=== PATIENT | female | born 1945 | race African-American/Black ===

== ENCOUNTER 2017-03-28 13:27 | Inpatient (IN) ==
[2017-03-28 14:39] LABS: Basophils % 0.2 % (0.0-0.8); Eosinophils # 0.1 10*3/uL (0.0-0.87); Eosinophils % 1.1 % (0.00-10.9); Hematocrit 32.8 VOL% (35.7-47.0); Hemoglobin 10.7 GM/DL (12.0-16.0); Immature Granulocytes % 0.3 %; Immature Granulocytes Absolute 0.03 #; Lymphocytes # 3.1 10*3/uL (1.4-4.0); Lymphocytes % 28.9 % (21.3-54.2); Mean Corpuscular HGB Conc 32.6 GM/DL (32-36); Mean Corpuscular Hemoglobin 26 PG (27-34); Mean Corpuscular Volume 79.8 FL (87-102); Mean Platelet Volume 11.2 FL (9.6-12.0); Monocytes # 0.8 10*3/uL (0.11-0.8); Monocytes % 7.2 % (1.7-12.7); Neutrophils # 6.6 10*3/uL (1.4-7.4); Neutrophils % 62.3 % (38.7-73.9); Platelet Count 330 T/CUMM (130-400); Red Blood Count 4.11 MC/CUMM (3.8-5.5); Red Cell Distribution Width 15.8 % (9.3-17.3); White Blood Count 10.7 T/CUMM (4-12)
[2017-03-28 15:09] LABS: Blood Urea Nitrogen 61 MG/DL (7-18); Calcium 9.5 MG/DL (8.5-10.1); Glucose 103 MG/DL (74-106); Magnesium 2.1 MG/DL (1.8-2.4); Osmolality,Calculated 291.7 MOS/KG (273-304); Potassium 2.6 MMOL/L (3.5-5.1); Sodium 138 MMOL/L (136-145); Troponin I Only < 0.015 NG/ML (0.00-0.045)
[2017-03-28] MEDS ORDERED: POTASSIUM CHLORIDE 20 MEQ TABLET PO STA (15:28)
[2017-03-28] MEDS ORDERED: SODIUM CHLORIDE 0.9% 500 ML IV STA (15:28)
[2017-03-28] MEDS ORDERED: POTASSIUM CHLORIDE 20 MEQ TABLET PO ONE (15:39)
--- NOTE | 2017-03-28 15:51 | Emergency Department Note ---
Clem Tripp Gwan, am scribing for, and in the presence of, Hebert Peterson M.D. 14:12. Kristen Tripp Howard T, M.D., personally performed the services described in this documentation, ascribed by Maged [place] in my presence, and it is both accurate and complete [id number] . Arrival - Arrival Chief Complaint: Arrhythmia/Palpitations Stated Complaint: increase heart rate ED Nursing Triage Note: Pt was out shopping today when she started to feel her heart race. States she has trouble keeping her K+ level normal. Pt denies SOB. Mode of Arrival: Ambulatory Limitations: No Limitations Source: Patient, Old Records Reviewed Time Seen by Provider: 03/28/17 13:55 - History of Present Illness HPI Narrative: Pt is a 72 y/o female who presents to the ED for further evaluation of heart palpitations with an onset today. Patient stated that she was out shopping when she began to feel her heart racing. She confirmed that she has been followed by her PCP Dr. Pascal due to her unstable potassium levels. Patient said that she was shopping in [facility] when she began to feel her heart racing. This prompted her visit to the ED for further evaluation. She confirmed that she is Stage III kidney failure due to the medication for her potassium levels, that this episode happened before 3 weeks ago, that her next appointment with PCP is in 3 months and that she has an appointment with Nephrology 04/09/2017 in [place]. Patient denies any SOB, fever, cough or any N/V/D. While in ED, patient stated that she is not in any pain. No other problems/complaints reported in ED. Onset (ago): hour(s) Consistency: constant Severity: moderate Allergies/Adverse Reactions: Allergies Allergy/AdvReac Type Severity Reaction Status Date / Time No Known Allergies Allergy Unverified 03/15/17 10:02 Home Medications: Home Medications Medication Instructions Recorded Confirmed Type Acetaminophen 650 mg PO Q6H PRN 03/15/17 03/28/17 History Allopurinol 300 mg PO DAILY 03/15/17 03/28/17 History Furosemide Tab [Lasix Tab] 80 mg PO BID 03/15/17 03/28/17 History HYDROcodone/ACETAMIN 7.5-325 1 tablet PO Q6H PRN #20 tablet 03/15/17 03/28/17 Rx [[place] 7.5-325] Lidocaine [Lidocaine 5% Oint] 1 applic TOP DAILY PRN 03/15/17 03/28/17 History Potassium Chloride 40 meq PO TID 03/15/17 03/28/17 History metOLazone [Metolazone] 5 mg PO DAILY 03/15/17 03/28/17 History Meloxicam [Meloxicam] 7.5 mg PO BID W/MEALS 03/28/17 03/28/17 History Review of System - Review of System 12 point system: reviewed and no additional remarkable complaints except as stated - Review of System Constitutional: Absent: chills, fever Eyes: Absent: discharge, pain Head/Ears/Nose/Throat: Absent: earache Cardiovascular: Present: as per HPI, palpitations Gastrointestinal: Absent: abdominal pain, nausea, vomiting, diarrhea Musculoskeletal: Absent: arm pain, back pain, leg pain, neck pain Skin: Absent: rash, lesions Neurological: Absent: headache Medical,Surgical,& Family Hx - Medical History Respiratory: History of: Asthma Renal: History of: Renal Failure Musculoskeletal: History of: Musculoskeletal Problems (arthritis) Other: History of: Miscellaneous Medical Problems (lower ext swelling) - Social History Smoking Status: Never smoker Exam Vital Signs: Vital Signs Temperature 96.9 F L 03/28/17 13:35 Pulse Rate 78 03/28/17 15:00 Respiratory Rate 16 03/28/17 15:00 Blood Pressure 114/86 03/28/17 15:00 O2 Sat by Pulse Oximetry 98 03/28/17 15:00 - General General appearance: alert, in no apparent distress - Head Head exam: Present: atraumatic, normocephalic - Eye Eye exam: Present: normal appearance, PERRL, EOMI - ENT ENT exam: Present: normal oropharynx, mucous membranes moist, TM's normal bilaterally, normal external ear exam - Neck Neck exam: Present: full ROM, trachea midline. Absent: tenderness - Respiratory Respiratory exam: Present: normal lung sounds bilaterally. Absent: respiratory distress - Cardiovascular Cardiovascular exam: Present: regular rate, normal rhythm, normal heart sounds - Extremities Exam Extremities exam: Present: full ROM. Absent: normal inspection, tenderness, calf tenderness - Back Exam Back exam: Present: full ROM. Absent: tenderness - Neurological Exam Neurological exam: Present: alert, oriented X3, CN II-XII intact. Absent: motor sensory deficit - Psychiatric Psychiatric exam: Present: normal affect, normal mood - Skin Skin exam: Present: warm, dry, intact, normal color Course Course Narrative: Medical decision making: Patient appears stable no acute distress however the potassium is low and she did have symptoms earlier today therefore hospitalist will evaluate the patient for probable overnight observation and further treatment. Results - Labs CBC & BMP: 03/28/17 14:21 03/28/17 14:21 Lab Results: I have reviewed the patients labs Labs: Laboratory Tests 03/28/17 14:21 WBC 10.7 RBC 4.11 Hgb 10.7 L MCV 79.8 L MCH 26 L Plt Count 330 Laboratory Tests 03/28/17 14:21 Sodium 138 Potassium 2.6 L Chloride 99 Carbon Dioxide 28 Anion Gap 13.6 BUN 61 H Creatinine 1.70 H BUN/Creatinine Ratio 35.00 H Troponin I < 0.015 - EKG EKG results: interpreted by ERMD (hr 84), sinus rhythm, normal axis, normal QRS , normal ST/T, no acute changes (1st degree av block) Disposition Clinical Impression: Palpitations, Hypokalemia Case discussed with: patient Disposition: Disch/Xfer-[facility] Term Hos Condition: Stable Time of Disposition: 15:51
--- NOTE | 2017-03-28 16:05 | Hospitalist History & Physical ---
Assessment and Plan (1) Chronic kidney disease, stage III (moderate) Status: Acute Current Visit: Yes (2) Chronic hypokalemia Status: Acute Current Visit: Yes (3) Palpitations Status: Acute Current Visit: Yes (4) Hypokalemia Status: Acute Assessment and plan: Patient will be admitted to a monitored bed. We will replete her potassium and continue her home dose which is 40 mEq p.o. 3 times daily. Her potassium is low most likely secondary to her heavy doses of Lasix. We will continue her other home meds as appropriate. Patient should be able to be discharged in the morning. Will check cardiac enzymes every 6 hours 2. Current Visit: Yes History of Present Illness Chief complaint: Palpitations History of present illness: Ms. Trae Morocho is a 72 year old female with past medical history significant for arthritis low potassium chronic kidney disease stage III he was in her normal state of health until today. Patient was at [employer] and felt her heart racing. She has been told in the past that if her potassium gets too low or gets too high he could be fatal for her. She got really concerned she lives by herself and came up to our hospital for further evaluation. Patient was found to have a potassium of 2.6. I was consulted to admit her through the ER by Dr. Rodriguez Home Medications Medication Instructions Recorded Confirmed Type Acetaminophen 650 mg PO Q6H PRN 03/15/17 03/28/17 History Allopurinol 300 mg PO DAILY 03/15/17 03/28/17 History Furosemide Tab [Lasix Tab] 80 mg PO BID 03/15/17 03/28/17 History HYDROcodone/ACETAMIN 7.5-325 1 tablet PO Q6H PRN #20 tablet 03/15/17 03/28/17 Rx [[place] 7.5-325] Lidocaine [Lidocaine 5% Oint] 1 applic TOP DAILY PRN 03/15/17 03/28/17 History Potassium Chloride 40 meq PO TID 03/15/17 03/28/17 History metOLazone [Metolazone] 5 mg PO DAILY 03/15/17 03/28/17 History Meloxicam [Meloxicam] 7.5 mg PO BID W/MEALS 03/28/17 03/28/17 History Allergies Allergy/AdvReac Type Severity Reaction Status Date / Time No Known Allergies Allergy Unverified 03/15/17 10:02 Medical,Surgical,& Family Hx - Medical History Respiratory: History of: Asthma Renal: History of: Renal Failure Musculoskeletal: History of: Musculoskeletal Problems (arthritis) Other: History of: Miscellaneous Medical Problems (lower ext swelling) - Surgical History Abdominal Surgeries: Surgical HX of: Abdominal Surgery Orthopedic Surgeries: Surgical HX of;: Orthopedic Surgery - Family History Additional Family History: Congestive heart failure and Alzheimer's - Social History Smoking Status: Never smoker 12 point system: reviewed and no additional remarkable complaints except as stated Exam - Constitutional Vitals: Period Temp Pulse Resp BP Sys/[place] Pulse Ox Last 24 Hr 96.9 F 72-93 16-18 112-139/71-92 96-100 General appearance: normal weight - Head Head exam: Present: normal inspection - Eye Eye exam: Present: EOMI Pupils: Present: BRITANY - ENT ENT exam: Present: normal exam - Neck Neck exam: Present: normal inspection - Respiratory Respiratory exam: Present: clear to auscultation bilaterally - Cardiovascular Cardiovascular exam: Present: systolic murmur - GI/Abdominal GI/Abdominal exam: Present: normal bowel sounds - Extremities Exam Extremities exam: Present: edema - Back Exam Back exam: Present: normal inspection - Neurological Exam Neurological exam: Present: alert, oriented X3 - Psychiatric Psychiatric exam: Present: normal affect, normal mood - Skin Skin exam: Present: normal color Results - Labs CBC & BMP: 03/28/17 14:21 03/28/17 14:21
[2017-03-28] MEDS ORDERED: ACETAMINOPHEN 325 MG TABLET PO PRN (16:06)
[2017-03-28] MEDS ORDERED: LIDOCAINE 5% OINTMENT TOP PRN (16:08)
[2017-03-28] MEDS: ENOXAPARIN 40 MG/0.4 ML SYRINGE SUBCUT SCH (18:44)
[2017-03-28] MEDS: MELOXICAM 7.5 MG TABLET PO SCH (18:44)
[2017-03-28] MEDS: POTASSIUM CHLORIDE 20 MEQ TABLET PO SCH (21:06)
[2017-03-28] MEDS: FUROSEMIDE 80 MG TABLET PO SCH (21:06)
[2017-03-29] MEDS ORDERED: POTASSIUM CHLORIDE 20 MEQ TABLET PO ONE ×2 (01:00→05:00)
[2017-03-29 07:11] LABS: Calcium 8.8 MG/DL (8.5-10.1); Osmolality,Calculated 297.1 MOS/KG (273-304); Potassium 3.3 MMOL/L (3.5-5.1)
[2017-03-29] MEDS ORDERED: metOLazone 5 MG TABLET PO SCH (09:00)
[2017-03-29] MEDS: MELOXICAM 7.5 MG TABLET PO SCH (09:09)
--- NOTE | 2017-03-29 09:12 | EKG Report ---
Stationary ECG Study [facility] ER Test Date: 03/28/2017 1:37:02 PM Pat Name: SHABNAM CORONADO Department: Room: 292 Gender: F Refrigerating Engineer Head: Brenda Light : 1945 Requested by: Hebert Pereira Order Number: [id number] Reading MD: PIPPA MOODY Intervals [place] Rate: 84 P: 77 ND: 215 QRS: 51 QRSD: 85 T: 68 QT: 383 QTc: 424 Interpretive Statements SINUS RHYTHM WITH FIRST DEGREE AV BLOCK Electronically Signed On 03-30-17 21:32:04 CDT by PIPPA MOODY [email or web address]
[2017-03-29] MEDS: POTASSIUM CHLORIDE 20 MEQ TABLET PO SCH (09:16)
[2017-03-29] MEDS: ALLOPURINOL 300 MG TABLET PO SCH (09:17)
[2017-03-29] MEDS: PANTOPRAZOLE 40 MG TABLET PO SCH (09:17)
[2017-03-29] MEDS: FUROSEMIDE 80 MG TABLET PO SCH (09:18)
[2017-03-29] MEDS ORDERED: POTASSIUM CHLORIDE INJ 40 MEQ in SODIUM CHLORIDE 0.9% 1,000 ML IV SCH (14:30)
[2017-03-29] MEDS: SODIUM CHLOR 0.9% KCL 40 MEQ 40 MEQ/1,000 ML BAG IV SCH ×3 (14:50→23:20)
[2017-03-29] MEDS: ENOXAPARIN 40 MG/0.4 ML SYRINGE SUBCUT SCH (16:48)
--- NOTE | 2017-03-29 16:50 | Hospitalist Progress Note ---
Assessment and Plan (1) Acute renal failure Status: Acute Assessment and plan: Start IV hydration gentle, check echocardiogram. Patient denies a history of congestive heart failure. Current Visit: Yes (2) Hypotension Status: Acute Assessment and plan: Hold all diuretics, gentle hydration with normal saline Current Visit: Yes (3) Dehydration Status: Acute Assessment and plan: Gentle hydration with normal saline Current Visit: Yes (4) Palpitations Status: Acute Assessment and plan: Most likely due to hypotension and dehydration. Current Visit: Yes (5) Hypokalemia Status: Acute Assessment and plan: Replace and recheck in a.m. Current Visit: Yes Hospitalist: Subjective Interval history: Patient reports still feeling extremely weak. Her blood pressure is on the lower and in her potassium is still not returned to normal. We will start her back on normal saline and hold her Lasix and add some supplemental potassium. Exam - Constitutional Exam: Heart Rate-[RRR] Lungs-[CTAB] GI-[+bs soft, NT] Ext-[no edema] Neuro [Motor 5/5], [alert and oriented times 3] psych [normal mood and affect] General [no acute distress] Results - Labs CBC & BMP: 03/28/17 14:21 03/29/17 06:29 Lab Results: I have reviewed the past 24 hour labs Quality Measures - Stroke Symptom Onset Unknown: No
--- NOTE | 2017-03-29 18:34 | ECHO Report ---
Melanie Lizarraga Exam Date: 03/29/2017 16:25 Referring Physician: Technologist: Siria Nugent RDCS Age: 72 Ht (in): 63 Wt (lb): 199 Gender: F Exam Location: [facility] Echo Indications: Chronic kidney disease, stage 3 (moderate), Chronic hypokalemia, Palpitations BP: 98 / 68 HR: 70 Rhythm: Sinus Technical Quality: Fair IMPRESSIONS 1. Left ventricle is normal size systolic function with ejection fraction 50%. There is mild diastolic dysfunction. 2. Right ventricle is normal size systolic function. 3. Right and left atrium are mildly dilated. 4. Mild mitral valve regurgitation. 5. Minimally sclerotic aortic valve without Doppler abnormalities. 6. Mild tricuspid regurgitation. 7. At worse mildly elevated right-sided pressures. MEASUREMENTS (Male / Female) Normal Values 2D ECHO LV Diastolic Diameter PLAX 3.7 cm 4.2 - 5.9 / 3.9 - 5.3 cm LV Systolic Diameter PLAX 2.4 cm LV Fractional Shortening PLAX 34.2 % IVS Diastolic Thickness 1.0 cm 0.6 - 1.0 / 0.6 - 0.9 cm LVPW Diastolic Thickness 1.0 cm 0.6 - 1.0 / 0.6 - 0.9 cm RV Internal Dim ED PLAX 2.5 cm Aortic Root Diameter 2.8 cm LA Systolic Diameter LX 4.2 cm 3.0 - 4.0 / 2.7 - 3.8 cm DOPPLER TR Peak Velocity 273.0 cm/s TR Peak Gradient 29.8 mmHg FINDINGS Left Ventricle Normal left ventricular cavity size. Normal left ventricular wall thickness. Left ventricular ejection fraction is estimated at 60 %. Mild diastolic dysfunction is present (grade 1). Right Ventricle The right ventricle is normal in size and function. Right Atrium The right atrium is mildly enlarged. Left Atrium The left atrium is mildly enlarged. Mitral Valve Morphologically normal mitral valve. Mild mitral valve regurgitation. Aortic Valve Morphologically normal aortic valve without significant sclerosis or stenosis. There is no aortic regurgitation. Tricuspid Valve Morphologically normal tricuspid valve. Mild tricuspid valve regurgitation. Tricuspid regurgitation velocities suggest a PAP of 40 mmHg. Pulmonic Valve Morphologically normal pulmonic valve without significant stenosis. There is no pulmonic regurgitation. Pericardium Normal pericardium without effusion. Aorta Normal ascending aorta dimension. Peterson Patel MD (Electronically Signed) Final Date: 29 Mar 2017 18:34
--- NOTE | 2017-03-29 18:47 | XRay Report ---
Referring Physician: Mary Hunt Exam: XR chest 1V portable Date: March 29, 2017 at 4:48 PM Reason: Shortness of breath Comparison: Chest PA lateral September 01, 2013 Findings: There is borderline cardiomegaly. No focal consolidation, pneumothorax or pleural effusion is identified. However, there is bronchial wall thickening bilaterally, which can be seen in bronchitis. No acute osseous process is seen. Surgical clips are noted within the upper abdomen near the gastroesophageal junction. Impression: 1. Borderline cardiomegaly. 2. There is bronchial wall thickening bilaterally, which can be seen in bronchitis. PROCEDURE INTERPRETED AT [facility] DEPARTMENT OF RADIOLOGY Final Report Signed by: Dr. Marcus Arriaga
[2017-03-30 06:32] LABS: Calcium 8.4 MG/DL (8.5-10.1); Potassium 3.7 MMOL/L (3.5-5.1)
[2017-03-30] MEDS: SODIUM CHLOR 0.9% KCL 40 MEQ 40 MEQ/1,000 ML BAG IV SCH (06:42)
[2017-03-30] MEDS: ALLOPURINOL 300 MG TABLET PO SCH (08:52)
[2017-03-30] MEDS: PANTOPRAZOLE 40 MG TABLET PO SCH (08:52)
--- NOTE | 2017-03-30 11:12 | Discharge Summary ---
Hospital Course - Hospital Course Hospital Course: 72 year old female with past medical history significant for arthritis, asthma and bilateral LE swelling. Patient's potassium on admission was 2.6 with a BUN of 61 and creatinine 1.7. Patient was placed on Lasix 80 mg twice a day with Zaroxolyn for lower extremity swelling. Patient has some venous insufficiency issues. She was hypotensive due to severe dehydration. She was rehydrated with normal saline and potassium. Her BUN came down to 54 with a creatinine of 1.2. 1.2 may be her new baseline but only time can tell. I would continue to leave her off the diuretics. Her echocardiogram showed an EF of 60% with mild diastolic grade 1 dysfunction. There is nothing to indicate that she is prone to congestive heart failure. She does have a PAP 40 but is no longer around anybody who smokes. Further workup may be in order from a vascular doctor if swelling continues to be problematic. I put her on a low-salt and water restriction. That will help some of the swelling. I have asked her to walk 20 minutes every other day. I have also asked her to record her blood pressure 3 times a day for the next week until she sees Dr. Pascal. She will need to follow-up with Dr. Pascal in 1-2 weeks. - Time spent with patient Time with patient DS: Less than 30 minutes (25 min) Diagnosis - Discharge Diagnosis (1) Acute renal failure Status: Acute (2) Hypotension Status: Acute (3) Dehydration Status: Acute (4) Palpitations Status: Acute (5) Hypokalemia Status: Acute Discharge Plan - Discharge Data Disposition: Disch To Home/Self Care Condition at Discharge: Stable Discharge Diet: low salt diet Activity: resume usual activities as tolerated Hygiene: no restrictions Weight Bearing at Discharge: full weight bearing Driving: no restrictions - Discharge Medications Continue Lidocaine [Lidocaine 5% Oint] 1 applic TOP DAILY PRN PRN Reason: Pain Allopurinol 300 mg PO DAILY Acetaminophen 650 mg PO Q6H PRN PRN Reason: Pain Discontinued metOLazone [Metolazone] 5 mg PO DAILY Furosemide Tab [Lasix Tab] 80 mg PO BID Potassium Chloride 40 meq PO TID HYDROcodone/ACETAMIN 7.5-325 [[place] 7.5-325] 1 tablet PO Q6H PRN #20 tablet PRN Reason: Knee pain Meloxicam [Meloxicam] 7.5 mg PO BID W/MEALS - Follow Up or Referral Follow Up: Geovanni Pascal MD [Family Provider] - 2 Weeks - Forms/Instructions Additional Discharge Instructions: fluid restriction of 2 liters daily. Avoid foods high in salt. blood pressure three times a day for 7 days. Pollo hose during day and off at night Exam - Constitutional Vitals: Period Temp Pulse Resp BP Sys/[place] Pulse Ox Last 24 Hr 96.9 F-97.7 F 69-88 18-18 94-108/56-71 92-99 General appearance: no acute distress, over weight - Respiratory Respiratory exam: Present: clear to auscultation bilaterally. Absent: rhonchi, wheezes - Cardiovascular Cardiovascular exam: Present: regular rate and rhythm. Absent: systolic murmur - GI/Abdominal GI/Abdominal exam: Present: normal bowel sounds, soft. Absent: tenderness - Neurological Exam Neurological exam: Present: alert, oriented X3 - Psychiatric Psychiatric exam: Present: normal affect, normal mood - Skin Skin exam: Present: normal color, warm Discharge Results Procedures and tests throughout hospitalization: Pending Orders 03/31/17 04:00 BMP [Basic Metabolic Panel] IN AM 04/01/17 04:00 BMP [Basic Metabolic Panel] IN AM Labs on day of discharge: Labs from last 24 hours 03/30/17 05:24 Sodium 143 Potassium 3.7 Chloride 106 Carbon Dioxide 28 Anion Gap 12.7 BUN 54 H Creatinine 1.20 H GFR Calculation 58 BUN/Creatinine Ratio 45.00 H Glucose 98 Calculated Osmolality 299.0 Calcium 8.4 L DS: Provider Date of admission: 03/29/17 12:55 Primary care physician: . No PCP Attending physician on admission: Peterson Germain MD Discharging clinician: Mary Hunt MD
[2017-03-30 12:09] VITALS: BP 94/52
== END 2017-03-30 14:53 | disposition home or self-care (01) | DRG 641 ==
LOC: N.EDINP 13:27 → N.ED 13:27 → SUATTDRO 15:46 → N.TELEN 16:36
PROVIDERS: ADMIT Internal Medicine; ATTEND Internal Medicine